=== PATIENT | female | born 1955 | race Caucasian/White ===

== ENCOUNTER → 2018-06-19 14:12 | Outpatient (REF) | payer OTHER, SELFPAY | LOC: LAB 14:12 | PROVIDERS: Visit Provider Otolaryngology Facial Plastic Surgery | DX: R04.0 Epistaxis (principal); J31.0 Chronic rhinitis | CPT/HCPCS: 87070; 87077; 87147; 87186 ==

== ENCOUNTER → 2018-06-25 11:27 | Outpatient (CLI) | payer OTHER, SELFPAY ==
--- NOTE | 2018-06-25 11:31 | DI.RAD.S_ITS ---
PROCEDURE: XR THORACIC SPINE 3V INDICATIONS: lumbo sacral back pain TECHNIQUE: 3 views of the thoracic spine were acquired. COMPARISON: None. FINDINGS: Bones: Post-anterior fusion changes in cervical spine are seen. No fractures or dislocations. No suspicious bony lesions. Degenerative disc disease throughout thoracic spine is noted. 12 pairs of ribs are noted, and appear intact where visualized. Soft tissues: No paravertebral stripe thickening. IMPRESSION: Degenerative disc disease throughout thoracic spine. No acute compression fracture or traumatic spondylolisthesis. Dictated by: Urbano Cardona M.D. on 06/25/2018 at 11:58 Approved by: Urbano Cardona M.D. on 06/25/2018 at 11:58
--- NOTE | 2018-06-25 11:31 | DI.RAD.S_ITS ---
PROCEDURE: XR CERVICAL SPINE 4V OR 5V INDICATIONS: neck pain TECHNIQUE: 5 views of the cervical spine acquired. COMPARISON: None. FINDINGS: Bones: Patient is status post prior anterior fusion from C4-C7 levels. There is straightening of normal cervical doses. No acute compression fracture or spondylolisthesis. Vertebral body heights are preserved. No gross hardware loosening or failure. Degenerative endplate changes are noted at C3-4 and C7-T1 levels. Oblique images demonstrate mild bilateral neuroforaminal narrowing at C5-6 level. Soft tissues: No prevertebral soft tissue swelling. IMPRESSION: Prior anterior fusion of cervical spine. No acute compression fracture or traumatic spondylolisthesis. No gross hardware complication. Degenerative disc disease in cervical spine as above. Suggestion of bilateral neuroforaminal narrowing at C5-6 level. Dictated by: Urbano Cardona M.D. on 06/25/2018 at 11:56 Approved by: Urbano Cardona M.D. on 06/25/2018 at 11:58
== END ==
PROVIDERS: PCP Nurse Practitioner Family; Visit Provider Physical Medicine & Rehabilitation
DX: M50.31 Other cervical disc degeneration, high cervical region (principal); M51.34 Other intervertebral disc degeneration, thoracic region; M54.5 Low back pain; Z98.1 Arthrodesis status
CPT/HCPCS: 72050; 72072

== ENCOUNTER → 2018-07-17 13:19 | Outpatient (REF) | payer OTHER, SELFPAY | LOC: LAB 13:19 | PROVIDERS: PCP Nurse Practitioner Family; Visit Provider Otolaryngology Facial Plastic Surgery | DX: R04.0 Epistaxis (principal); J31.0 Chronic rhinitis; J34.89 Other specified disorders of nose and nasal sinuses | CPT/HCPCS: 87070 ==

== ENCOUNTER 2018-08-11 10:25 | Outpatient (CLI) | payer OTHER, SELFPAY ==
[2018-08-11] VITALS (7 sets, daily range): BP systolic 108–131; BP diastolic 62–85; PULSE 67–85; RESP 16–18; O2SAT 97–100
--- NOTE | 2018-08-11 10:26 | DI.RAD.S_ITS ---
PROCEDURE: PAIN C/T INTERLAMINAR INJECT INDICATIONS: SPONDYLOSIS FINDINGS: Fluoroscopic spot filming was performed to verify placement of spinal needles at the C7-T1 level(s), as labeled on the films. Appropriate location(s) of the needle tip(s) was confirmed by injection of iodinated contrast. Dictated by: Link Upton M.D. on 08/11/2018 at 13:09 Approved by: Link Upton M.D. on 08/11/2018 at 13:09
[2018-08-11] MEDS: MIDAZOLAM 5 MG/5 ML VIAL IV (11:05)
[2018-08-11] MEDS: IOPAMIDOL 15 ML VIAL 3 ML INJ (11:12)
[2018-08-11] MEDS: DEXAMETHASONE 10 MG/ML VIAL 20 MG INJ (11:12)
[2018-08-11] MEDS: LIDOCAINE 1% 20 ML INJ 5 ML INJ (11:12)
--- NOTE | 2018-08-11 11:17 | PC.NURSE ---
pt tolerated procedure well, moderate assist to get pt off gurney, her legs were a little whobbly, Transferred pt via wheelchair to pre procedure room for continued monitoring with Nikki ALLEN.
--- NOTE | 2018-08-11 11:24 | PM.PROC.1 ---
Procedures Date/Time Date of procedure: 08/11/18 Time of procedure: 11:24 General Procedure description: PREOP DIAGNOSIS 1. CERVICAL STENOSIS, 2. CERVICAL HNP WITH UPPER EXTREMITY RADICULAR FEATURES, POST OP DIAGNOSIS 1. CERVICAL STENOSIS, 2. CERVICAL HNP WITH UPPER EXTREMITY RADICULAR FEATURES, PROCEDURES 1. FLUORSCOPICALLY GUIDED CONTRAST CONTROLLED INTERLAMINAR EPIDURAL STEROID INJECTION - C7/T1 TL BUSHRA, PHYSICIAN: Tomas Faulkner DO INDICATIONS: Keena is referred by NAEEM Stanley for treatment of Cervical Stenosis. FINDINGS Cervical Stenosis due to disc deterioration and nerve root irritation and nerve root irritation DESCRIPTION OF PROCEDURE Fluoroscopically guided, contrast-controlled C7/T1 translaminar epidural steroid injection with conscious sedation. Following denial of allergy and review of potential side effects and complications, including, but not necessarily limited to, infection, allergic reaction, local tissue breakdown, temporary as well as permanent nerve injury, stroke, paralysis, and possible , the patient indicated that patient understood and agreed to proceed. An informed consent document was signed by the patient, witnessed by a nurse, and placed in the patient's chart. Additionally, other treatment options including modalities, medications, and physical therapy were reviewed with the patient. After review of previous anaesthesic history and IV conscious sedation the patient was deemed safe to proceed with todays procedure with IV conscious sedation as ASA class II designation. Safety time-out was performed to confirm patient ID, procedure to be performed and site of procedure. IV sedation was accomplished with a combination of 4mg of Versed administered by the RN after DO order, titrated to patient comfort during the course of the procedure while the patient remained responsive to all verbal commands. In the prone position, following sterile prep and drape of the cervical region, the C7/T1 translaminar space was identified fluoroscopically. The skin was anesthetized via a 25-gauge 1.5-inch needle with 1% lidocaine solution. At this point, a 25-gauge, 2.5-inch short bevel spinal needle was atraumatically introduced and advanced under fluoroscopic guidance into epidural space at the C7/T1 translaminar space. Depth was confirmed on lateral view. Radiological data, including multiple fluoroscopic views of the cervical spine, reveal a spinal needle at the C7/T1 translaminar space. Lateral views then show placement of the needle in the epidural space. Subsequent views show contrast material flowing superiorly and inferiorly in the epidural space. DSA fluoroscopy with live contrast injection, once again, confirmed no vascular or intrathecal uptake. At this point, using loss of resistance technique with saline and air, the epidural space was entered. Following negative aspiration, injection of approximately 1.5 cc of Isovue-200 with live fluoroscopy in the AP view confirmed epidural flow in the epidural space without vascular or intrathecal uptake observed. Subsequently, a test dose of 1 cc of 1% lidocaine solution was injected and patient was observed for two minutes without signs or symptoms of complications, including abdominal pain, shortness of breath, bilateral upper or lower extremity weakness, nausea and vomiting, prior to steroid injection. At this point, 2cc or 20mg of dexamethasone was then injected without incident. The patient tolerated the procedure well without signs or symptoms of complications prior to transfer to the recovery area for further monitoring The patient was then transferred to the recovery area where they were observed for an appropriate period of time after the injection. The patient reported a VAS score of 6 prior to the procedure and a post-procedure VAS of 0. Total Fluoroscopy Time: 23.2 seconds Total Conscious Sedation Time: 24min POST OP INSTRUCTIONS The patient was provided a Pain Log to continue to record their response to the target-specific procedure prior to follow-up visit with the referring provider. Additionally, specific post-injection care instructions and a contact number to our office were provided if concerns arise regarding possible complications associated with the procedure are suspected. Tomas Faulkner DO Complications: none
--- NOTE | 2018-08-12 16:21 | PC.NURSE ---
Follow up call made and pt reports feeling pretty good reports a low grade headache. Has some amitriptyline and will take some again tonight after work. She took some last night and was able to sleep.
== END 2018-08-11 12:24 | disposition home or self-care (01) ==
LOC: RAD 10:25
PROVIDERS: PCP Nurse Practitioner Family; Visit Provider Physical Medicine & Rehabilitation
DX: M48.02 Spinal stenosis, cervical region (principal); M50.123 Cervical disc disorder at C6-C7 level with radiculopathy
CPT/HCPCS: 62321; 99152; J1100; J2250